=== PATIENT | female | born 1990 | race Caucasian/White ===

== ENCOUNTER 2020-07-30 10:56 | Outpatient (CLI) | payer OTHER ==
[2020-07-30 13:21] VITALS: BP 131/77; PULSE 90; RESP 16
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
== END 2020-07-30 13:10 | disposition home or self-care (01) ==
LOC: FBPOP 10:56
PROVIDERS: ATTEND Obstetrics & Gynecology
DX: O26.893 Other specified pregnancy related conditions, third trimester (principal); Z3A.29 29 weeks gestation of pregnancy
CPT/HCPCS: 59025; 99213

== ENCOUNTER 2020-09-17 15:29 | Outpatient (CLI) | payer BC ==
[2020-09-17 16:43] VITALS: BP 137/82; PULSE 101; RESP 18; TEMP 97.5
--- NOTE | 2020-10-01 13:07 | P.MSEPDOC ---
Presenting Problems - Arrival Data Date of Arrival on Unit: 09/17/20 Time of Arrival on Unit: 15:29 Mode of Transport: Ambulatory - Complaint OB-Reason for Admission/Chief Complaint: Possible Onset of Labor Medical History - Information : 1 Para: 0 Term: 0 : 0 Abortions: Spontaneous or Elective: 0 Number of Living Children: 0 - Gestational Age Gestational Age by CARMELO (wks/days): 36 Weeks and 6 Days Review of Systems - Review of Systems Constitutional: No problems Breast: No problems ENT: No problems Cardiovascular: No problems Respiratory: No problems Gastrointestinal: No problems Genitourinary: No problems Musculoskeletal: No problems Neurological: No problems Skin: No problems Vital Signs - Temperature Temperature: 97.5 F Temperature Source: Temporal Artery Scan - Pulse Right Brachial Pulse Rate: 101 Pulse Assessment Method: Automatic Cuff - Respirations Respiratory Rate: 18 Oxygen Delivery Method: Room Air - Blood Pressure Right Arm Blood Pressure: 137/82 Blood Pressure Mean: 100 Blood Pressure Source: Automatic Cuff Medical Screen Scoring (Pre) - Cervical Exam Dilation: 1-3 cm = 1 Effacement: More than 50% = 2 Membranes: Intact - Uterine Contractions Frequency: > 5 minutes apart = 1 Duration: N/A Intensity: N/A - Maternal Vital Signs Maternal Temperature: N/A Maternal Blood Pressure: N/A Signs of Preeclampsia: N/A Maternal Respirations: N/A - Maternal Trauma Maternal Trauma: N/A - Assessment - Baby A Baseline FHR: 130 Heart Rate - NICHD Category: Category I (Normal) = 0 NST: Reactive Position: N/A Station: N/A - Total Score - Baby A Total Score - Baby A: 4 - Total Score - Baby B Total Score - Baby B: 4 - Total Score - Baby C Total Score - Baby C: 4 - Level of Risk - Baby A Level of Risk - Baby A: Low (0-5) - Level of Risk - Baby B Level of Risk - Baby B: Low (0-5) - Level of Risk - Baby C Level of Risk - Baby C: Low (0-5) Physician Notification (Pre) - Physician Notified Physician Notified Date: 09/17/20 Physician Notified Time: 16:18 New Order Received: Yes - Notification Comment Comment: nst reactive, irregular contractions, cervical exam, 1.5/60,orders to discharge home, follow up at scheduled appt on sunday with Dr. León Disposition - Disposition OB Disposition: Triage, Discharge to home, Written follow up instructions reviewed Discharge Date: 09/17/20 Discharge Time: 16:25 I agree with the RN Medical Screening Exam: Yes Physician's MSE Comment: I have neither seen nor examined the patient. Case reviewed; plan agreed upon as documented in EMR&OBIX.: Yes Diagnosis: RELATED CONDITIONS, UNSPECIFIED, THIRD TRIMESTER
== END 2020-09-17 16:25 | disposition home or self-care (01) ==
LOC: FBPOP 15:29
PROVIDERS: ATTEND Obstetrics & Gynecology
DX: O26.893 Other specified pregnancy related conditions, third trimester (principal); Z3A.36 36 weeks gestation of pregnancy
CPT/HCPCS: 59025; 99213

== ENCOUNTER 2020-10-04 09:58 | Inpatient (IN) | payer BC ==
[2020-10-04] MEDS ORDERED: CITRIC ACID-SODIUM CITRATE 15 ML CUP PO ONE (10:11)
[2020-10-04 10:59] LABS: Basophils % (A) 0 %; Eosinophils # (A) 0.1 k/uL (0-0.7); Eosinophils % (A) 1 %; HCT 35.3 % (34.0-46.0); HGB 12.4 gm/dL (11.4-16.0); Lymphocytes # (A) 2.1 k/uL (1.0-4.8); Lymphocytes % (A) 16 %; MCH 30.4 pg (25.0-35.0); MCV 86.9 fL (80.0-100.0); Mean Platelet Volume 7.8; Monocytes # (A) 0.6 k/uL (0-1.0); Monocytes % (A) 5 %; Neutrophils # (A) 9.7 k/uL (1.3-7.7); Neutrophils % (A) 76 %; Platelet Count 217 k/uL (150-450); RBC 4.06 m/uL (3.80-5.40); RDW 14.2 % (11.5-15.5); WBC 12.7 k/uL (3.8-10.6)
[2020-10-04] MEDS ORDERED: LACTATED RINGERS 1,000 ML IV ONE (11:15)
[2020-10-04] MEDS ORDERED: OXYTOCIN 10 UNIT/ML 1 ML VIAL ONE (11:58)
[2020-10-04] MEDS ORDERED: METHYLERGONOVINE 0.2 MG/ML 1 ML AMP ONE (11:58)
[2020-10-04] MEDS ORDERED: MORPHINE SULFATE (PF) 0.3 MG/0.3 ML SYR ONE (11:58)
[2020-10-04] MEDS ORDERED: ONDANSETRON 4 MG/2 ML VIAL ONE (11:58)
[2020-10-04] MEDS ORDERED: NALBUPHINE 10 MG/ML (1 ML AMP) ONE (11:58)
[2020-10-04] MEDS ORDERED: KETOROLAC 15 MG/ML 1 ML VIAL ONE (11:58)
--- NOTE | 2020-10-04 11:58 | P.HPOB ---
History of Present Illness H&P Date: 10/04/20 Chief Complaint: Here for section for breech presentation This is a 30-year-old white female 1 para 0 EDC 10/11/2020 at 39 weeks gestation. Patient has a known breech presentation and presents today for section. She denies vaginal bleeding or fluid leakage. Fetus is been active throughout the . Past medical history is essentially negative. Past surgical history wisdom teeth extracted in the past. Current medications vitamins daily. ALLERGIES none known. Family history significant for breast cancer and brain cancer. Social history patient has never been a smoker, she denies alcohol or drug use. 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 Obstetric history is significant for blood type A+, rubella status nonimmune. Urine culture, hepatitis B surface antigen, HIV testing, gonorrhea and chlamydia cultures all negative. One-hour Glucola 175, three-hour GTT within normal limi ts. Sonogram at the bedside confirmed breech presentation. Patient has had mild PIH throughout the third trimester of . Impression: 39 week intrauterine , mild PIH, persistent breech presentation declining option for . Here for primary low transverse section. Plan: Antibiotic prophylaxis per hospital protocol. For primary low transverse section at this time. Review of Systems Constitutional: Reports as per HPI Past Medical History Past Medical History: No Reported History History of Any Multi-Drug Resistant Organisms: None Reported Additional Past Surgical History / Comment(s): wisdom teeth Past Anesthesia/Blood Transfusion Reactions: No Reported Reaction Past Psychological History: Anxiety Smoking Status: Never smoker Past Alcohol Use History: None Reported Past Drug Use History: None Reported - Past Family History Mother Family Medical History: Hypertension Father Family Medical History: Hypertension Medications and Allergies Home Medications Medication Instructions Recorded Confirmed Type Aspirin [Adult Low Dose Aspirin EC] 81 mg PO DAILY 07/30/20 10/04/20 History Pnv No.95/Ferrous Fum/Folic AC 1 tab PO DAILY 07/30/20 10/04/20 History [ Multivitamin Tablet] L.acidoph,Paracasei, B.lactis 1 each PO DAILY 09/30/20 10/04/20 History [Probiotic] Allergies Allergy/AdvReac Type Severity Reaction Status Date / Time No Known Allergies Allergy Verified 10/04/20 10:09 Exam Vital Signs Temp Pulse Resp BP Pulse Ox 10/04/20 10:48 98.2 F 97 18 149/87 99 Intake and Output 10/03/20 10/04/20 10/04/20 22:59 06:59 14:59 Other: Weight 84.822 kg See dictation under HPI please Results Result Diagrams: 10/04/20 10:30 Abnormal Lab Results - Last 24 Hours (Table) 10/04/20 Range/Units 10:30 WBC 12.7 H (3.8-10.6) k/uL Neutrophils # 9.7 H (1.3-7.7) k/uL Assessment and Plan Assessment: 39 week intrauterine , breech presentation, here for primary low tr ansverse section, declining option for . Mild PIH noted. Plan: Primary low transverse section. All questions answered, consents reviewed signed witnessed and dated. Prophylactic antibiotics given. Time with Patient: Less than 30
[2020-10-04] MEDS ORDERED: ONDANSETRON 4 MG/2 ML VIAL IVP PRN (12:49)
[2020-10-04] MEDS ORDERED: diphenhydrAMINE 50 MG CAP PO PRN (12:49)
[2020-10-04] MEDS ORDERED: diphenhydrAMINE 25 MG CAP PO PRN (12:49)
[2020-10-04] MEDS ORDERED: ZOLPIDEM 5 MG TAB PO PRN (12:49)
[2020-10-04] MEDS ORDERED: diphenhydrAMINE 50 MG/ML 1 ML VIAL IVP PRN ×2 (12:49)
[2020-10-04] MEDS ORDERED: METOCLOPRAMIDE 5 MG/ML 2 ML VIAL IVP PRN (12:49)
[2020-10-04] MEDS ORDERED: NALOXONE 0.4 MG/ML 1 ML VIAL IV PRN (12:49)
--- NOTE | 2020-10-04 12:49 | P.OP ---
Date of Procedure: 10/04/20 Preoperative Diagnosis: 39 week intrauterine , breech presentation Postoperative Diagnosis: Same, liveborn female infant. Normal-appearing uterus, tubes and ovaries. Procedure(s) Performed: Primary low transverse section Anesthesia: spinal Surgeon: Carmen León Labor Commissioner #1: Mirian Devine Estimated Blood Loss (ml): 500 IV fluids (ml): 700 Urine output (ml): 200 Pathology: none sent Condition: stable Disposition: PACU Indications for Procedure: Declining option for Description of Procedure: Patient is brought to bring suite where a spinal with Duramorph is given for analgesic purposes. She's placed in the dorsal supine position with left lateral uterine displacement. Bazan catheter placed to direct drainage. Antibiotics given. The appropriate timeout was performed to assure proper patient and procedural identification. Analgesia is checked and noted to be adequate. A low transverse skin incision is made in this is carried down through the subcutaneous tissue which is approximately 3 cm deep. Fascia is isolated, scored, extended bilaterally with curved Marcelo scissors. Peritoneum is next identified and incised, there is no bowel or bladder involvement. Bladder is low on the uterine anterior surface and therefore a separate bladder flap was not created. A low transverse uterine incision is made carried down through the myometrium and into the endometrial cavity. Artificial amniorrhexis reveals clear fluid. The uterine incision is extended transversely manually. The infant's breech is delivered in the caden breech position. Sacrum anterior. The legs are delivered with a Pinard maneuver. A sterile blue towel is used around the trunk and the Pinard maneuver is used to deliver the upper extremities. The head is delivered in a flexed position. Patient is officially delivered of a liveborn female at 1213 hours. Umbilical cord is doubly clamped and ligated, she is handed to waiting nurses for evaluation where scores of 9 and 9 at one and 5 minutes respectively are given. Placentas delivered manually, it is inspected and noted to be intact with trivascular cord at 1214 hours. Uterus is externalized and massaged. It is swept clean with a sterile sponge to avoid any retained products of conception. Uterus closed in a two-step fashion, first layer running locking with 0 Vicryl, second layer imbricated with 0 Vicryl. The incision is clean and dry. The uterus is gently placed back into the abdominal cavity. Bilateral gutters are inspected and cleaned. Peritoneum is allowed to close by secondary intention. Fascia is closed in a running stitch of 0 Vicryl with over ligation in the midline. Subcutaneous tissue is irrigated, noted to be clean and dry. It is reapproximated with 3-0 Vicryl in a running stitch, 4-0 undyed Monocryl for final subcuticular closure. Steri-Strips and Mastisol are applied to the wound. Uterus is massaged. It is slightly boggy and a single ampule of Methergine was given IM with good results. Total estimated blood loss 500 mL's. Total fluid replacement 700 mL crystalloid. Urine output 200 mL, clear and yellow. Patient is brought back to recovery room in very good condition with stable vital signs including blood pressure 114/66, pulse 88, respirations 16, 98% O2 saturation.
[2020-10-04] MEDS ORDERED: HYDROmorphone 0.5 MG/0.5 ML SYRINGE IVP PRN (16:37)
[2020-10-04] MEDS: ACETAMINOPHEN TAB 500 MG TAB PO SCH ×2 (16:45→22:37)
[2020-10-04] MEDS: LACTATED RINGERS 1,000 ML IV SCH (17:00)
[2020-10-04] MEDS: HYDROcodone/APAP 5-325MG 1 EACH TAB PO PRN ×2 (17:02→22:36)
[2020-10-04] MEDS: KETOROLAC 15 MG/ML 1 ML VIAL IVP SCH (18:10)
[2020-10-04] MEDS: SENNOSIDES-DOCUSATE SODIUM 1 EACH TAB PO SCH (22:36)
[2020-10-05] MEDS: LACTATED RINGERS 1,000 ML IV SCH ×3 (00:48→23:04)
[2020-10-05] MEDS: KETOROLAC 15 MG/ML 1 ML VIAL IVP SCH ×3 (02:15→23:04)
[2020-10-05] MEDS: HYDROcodone/APAP 5-325MG 1 EACH TAB PO PRN ×3 (04:53→20:41)
[2020-10-05] MEDS: ACETAMINOPHEN TAB 500 MG TAB PO SCH ×2 (05:18→23:04)
--- NOTE | 2020-10-05 07:18 | P.PN ---
Progress Note - Text Progress Note Date: 10/05/20 Patient doing well. Ambulating without paresthesia or weakness. Pain controlled. Denies headache. Pruritis treated. A/P POD#1 s/p with duramorph - continue multimodal pain treatment
[2020-10-05] MEDS ORDERED: MEASLES-MUMPS-RUBELLA VACC/PF 12,500 UNIT/0.5 ML VIAL SQ ONE (08:00)
[2020-10-05 08:27] LABS: Basophils % (A) 0 %; Eosinophils # (A) 0.1 k/uL (0-0.7); Eosinophils % (A) 1 %; HCT 29.2 % (34.0-46.0); HGB 10.3 gm/dL (11.4-16.0); Lymphocytes # (A) 1.7 k/uL (1.0-4.8); Lymphocytes % (A) 14 %; MCH 31.2 pg (25.0-35.0); MCHC 35.3 g/dL (31.0-37.0); MCV 88.4 fL (80.0-100.0); Mean Platelet Volume 7.8; Monocytes # (A) 0.7 k/uL (0-1.0); Monocytes % (A) 5 %; Neutrophils # (A) 9.5 k/uL (1.3-7.7); Neutrophils % (A) 78 %; Platelet Count 190 k/uL (150-450); RDW 14.1 % (11.5-15.5); WBC 12.3 k/uL (3.8-10.6)
[2020-10-05] MEDS: SENNOSIDES-DOCUSATE SODIUM 1 EACH TAB PO SCH ×2 (09:00→20:41)
--- NOTE | 2020-10-05 09:01 | P.PN ---
Subjective Progress Note Date: 10/05/20 Principal diagnosis: Doing well postoperative day #1 Positive flatus. Minimal pain. Minimal to moderate lochia rubra. No complaints. Objective - Vital Signs Vital signs: Vital Signs Temp 98.2 F 10/05/20 07:12 Pulse 83 10/05/20 07:12 Resp 14 10/05/20 07:12 BP 107/66 10/05/20 07:12 Pulse Ox 99 10/05/20 07:12 Intake & Output 10/04/20 10/05/20 10/05/20 18:59 06:59 18:59 Intake Total 1000 Output Total 800 Balance 1000 -800 Weight 84.822 kg Intake: IV 1000 Output: Urine 800 Uretheral (Bazan) 600 Other: Voiding Method Indwelling Catheter # Voids 200 1 1 - Constitutional General appearance: Present: average body habitus, cooperative - EENT Eyes: Present: PERRLA ENT: Present: hearing grossly normal - Respiratory Respiratory: bilateral: CTA - Cardiovascular Rhythm: regular - Gastrointestinal Gastrointestinal Comment(s): Incision clean and dry, intact, Steri-Strips applied. Fundus firm, midline, symmetric, 18 week size. - Integumentary Integumentary: Present: normal - Neurologic Neurologic: Present: CNII-XII intact - Musculoskeletal Musculoskeletal: Present: gait normal, strength equal bilaterally - Psychiatric Psychiatric: Present: A&O x's 3, appropriate affect, intact judgment & insight - Labs CBC & Chem 7: 10/05/20 07:48 Labs: Abnormal Lab Results - Last 24 Hours (Table) 10/04/20 10/05/20 Range/Units 10:30 07:48 WBC 12.7 H 12.3 H (3.8-10.6) k/uL RBC 3.30 L (3.80-5.40) m/uL Hgb 10.3 L (11.4-16.0) gm/dL Hct 29.2 L (34.0-46.0) % Neutrophils # 9.7 H 9.5 H (1.3-7.7) k/uL Assessment and Plan Assessment: Doing well postoperative day #1 Plan: Continue postoperative care. Likely discharge home tomorrow. Time with Patient: Less than 30
[2020-10-05] MEDS: IBUPROFEN 600 MG TAB PO PRN (16:35)
[2020-10-05] MEDS ORDERED: ACETAMINOPHEN TAB 500 MG TAB PO PRN (19:37)
[2020-10-05] MEDS ORDERED: diphenhydrAMINE 25 MG CAP PO PRN (19:37)
[2020-10-05] MEDS ORDERED: diphenhydrAMINE 50 MG CAP PO PRN (19:37)
[2020-10-05] MEDS ORDERED: ONDANSETRON 4 MG/2 ML VIAL IVP PRN (19:37)
[2020-10-05 23:08] VITALS: RESP 18
[2020-10-06] MEDS: IBUPROFEN 600 MG TAB PO PRN ×2 (02:53→07:47)
[2020-10-06 07:42] VITALS: BP 119/84; PULSE 91; TEMP 98.6
--- NOTE | 2020-10-06 08:00 | P.DS ---
Providers Date of admission: 10/04/20 09:58 Expected date of discharge: 10/06/20 Attending physician: Carmen León Primary care physician: Stated None Hospital Course: This is a 30-year-old white female 1 para 0 EDC 10/11/2020 at 39 weeks gestation. Patient presented for section for breech presentation, declining option for . remarkable for negative group B strep cultures, blood type A positive, rubella status nonimmune. Please see dictated history and physical for details. Patient underwent a primary low transverse section and gave to a breech female infant with scores of 9 and 9 at one and 5 minutes respectively. Infant weight 3280 g or 7 lbs. 4 oz. Estimated blood loss 500 mL's. Please see my dictated operative note for details. Postoperatively the patient is doing well. She is voiding, ambulating, passing flatus without difficulty. Vital signs are stable and she is afebrile. Incision is clean and dry, intact with Steri-Strips applied. Extremities are negative for edema. Breasts are not engorged. is doing well. Patient is judged to be in very good condition for discharge home. She will follow-up with me in the office in 2 weeks. I have reminded her no intercourse, tampons or douching. She will use [id number] Advil or Aleve, or Motrin as needed for pain. She will call with any fevers shakes or chills, foul smelling or copious lochia, with the passage of large blood clots, with any pain not alleviated by [id number] products, or indeed with any concerns. Continue vitamin daily. Assessment: Doing well second postoperative day Patient Condition at Discharge: Good Plan - Discharge Summary Discharge Rx Participant: No New Discharge Prescriptions: No Action Pnv No.95/Ferrous Fum/Folic AC [ Multivitamin Tablet] 1 tab PO DAILY Aspirin [Adult Low Dose Aspirin EC] 81 mg PO DAILY L.acidoph,Paracasei, B.lactis [Probiotic] 1 each PO DAILY Discharge Medication List Aspirin [Adult Low Dose Aspirin EC] 81 mg PO DAILY 07/30/20 [History] Pnv No.95/Ferrous Fum/Folic AC [ Multivitamin Tablet] 1 tab PO DAILY 07/30/20 [History] L.acidoph,Paracasei, B.lactis [Probiotic] 1 each PO DAILY 09/30/20 [History] Follow up Appointment(s)/Referral(s): Carmen León MD [STAFF PHYSICIAN] - 2 Weeks Discharge Disposition: HOME SELF-CARE
[2020-10-06] MEDS: SENNOSIDES-DOCUSATE SODIUM 1 EACH TAB PO SCH (10:41)
[2020-10-07] MEDS ORDERED: IBUPROFEN 600 MG TAB PO SCH (19:00)
== END 2020-10-06 10:16 | disposition home or self-care (01) | DRG 788 ==
LOC: 4FBP 09:58
PROVIDERS: ADMIT Obstetrics & Gynecology; ATTEND Obstetrics & Gynecology
PROC: 10D00Z1 Extraction of Products of Conception, Low, Open Approach (ICD-10-PCS; principal; 2020-10-04 12:00)
DX: O64.1XX0 Obstructed labor due to breech presentation, not applicable or unspecified (principal); O13.4 Gestational [pregnancy-induced] hypertension without significant proteinuria, complicating childbirth; O34.211 Maternal care for low transverse scar from previous cesarean delivery; L29.9 Pruritus, unspecified; Z37.0 Single live birth; Z3A.39 39 weeks gestation of pregnancy; Z79.82 Long term (current) use of aspirin
CPT/HCPCS: 85025; 86850; 86900; 86901; 90707

== ENCOUNTER 2024-03-17 13:15 | Observation (INO) | payer BC ==
[2024-03-17 14:14] LABS: Basophils # (A) 0.1 k/uL (0-0.2); Basophils % (A) 1 %; Eosinophils # (A) 0.2 k/uL (0-0.7); Eosinophils % (A) 2 %; HCT 40.1 % (34.0-46.0); HGB 13.6 gm/dL (11.4-16.0); Lymphocytes # (A) 2.3 k/uL (1.0-4.8); Lymphocytes % (A) 23 %; MCH 30.3 pg (25.0-35.0); MCHC 33.9 g/dL (31.0-37.0); MCV 89.5 fL (80.0-100.0); Mean Platelet Volume 7.7; Monocytes # (A) 0.4 k/uL (0-1.0); Monocytes % (A) 4 %; Neutrophils % (A) 69 %; Platelet Count 284 k/uL (150-450); RBC 4.48 m/uL (3.80-5.40); RDW 13.1 % (11.5-15.5); WBC 10.1 k/uL (3.8-10.6)
--- NOTE | 2024-03-17 14:23 | ED ---
Chest Pain HPI - General Chief Complaint: Chest Pain Stated Complaint: Chest Pain Time Seen by Provider: 03/17/24 14:20 Source: patient, RN notes reviewed Mode of arrival: ambulatory Limitations: no limitations - History of Present Illness Initial Comments: 33-year-old female presented the ER with a chief complaint of chest discomfort. Patient was sent by urgent care for further evaluation. Patient states she was awoken from her sleep at this morning around 4 AM to a squeezing pressure centralized chest pain. She states the pain has been intermittent since. She reports associated shortness of breath, dizziness and lightheadedness during these episodes. She does report mild numbness/tingling to her left upper extremity. Pain is not reproducible. No known cardiac history. No history of DVTs or PEs. Patient did take aspirin prior to arrival. No other complaints. - Related Data Home Medications Medication Instructions Recorded Confirmed Apri 1 tab PO HS 03/17/24 03/17/24 fluvoxaMINE [Luvox] 50 mg PO HS 03/17/24 03/17/24 Allergies Allergy/AdvReac Type Severity Reaction Status Date / Time No Known Allergies Allergy Verified 03/17/24 16:25 Review of Systems ROS Statement: Those systems with pertinent positive or pertinent negative responses have been documented in the HPI. ROS Other: All systems not noted in ROS Statement are negative. EKG Findings - EKG Comments: EKG Findings:: EKG taken at 13: 37 showing a sinus rhythm no acute ST segment depressions or elevations. No T wave abnormalities. Normal axis. Ventricular rate 67,W[place] interval 142, QRS duration 81, QT/QTc 399/414. Past Medical History Past Medical History: No Reported History History of Any Multi-Drug Resistant Organisms: None Reported Past Surgical History: Section Additional Past Surgical History / Comment(s): wisdom teeth Past Anesthesia/Blood Transfusion Reactions: No Reported Reaction Past Psychological History: Anxiety Smoking Status: Never smoker Past Alcohol Use History: None Reported Past Drug Use History: None Reported - Past Family History Mother Family Medical History: Hypertension Father Family Medical History: Hypertension General Exam Limitations: no limitations General appearance: alert, in no apparent distress Respiratory exam: Present: normal lung sounds bilaterally. Absent: respiratory distress, wheezes, rales, rhonchi, stridor Cardiovascular Exam: Present: regular rate, normal rhythm, normal heart sounds. Absent: systolic murmur, diastolic murmur, rubs, gallop, clicks Extremities exam: Present: normal inspection, full ROM, normal capillary refill. Absent: tenderness, pedal edema, joint swelling, calf tenderness Neurological exam: Present: alert, oriented X3, CN II-XII intact Skin exam: Present: warm, dry, intact, normal color. Absent: rash Course Vital Signs 03/17/24 03/17/24 03/17/24 13:28 13:40 13:48 Temperature 98.8 F Pulse Rate 67 72 Pulse Rate [ 71 Staker Surveying ] Respiratory 16 17 Rate Blood Pressure 118/86 131/86 O2 Sat by Pulse 99 99 Oximetry 03/17/24 03/17/24 15:15 16:37 Temperature 98.7 F Pulse Rate 72 94 Pulse Rate [ Staker Surveying ] Respiratory 18 15 Rate Blood Pressure 125/77 118/86 O2 Sat by Pulse 100 98 Oximetry - Reevaluation(s) Reevaluation #1: 03/17/24 16:[address] Bales for admission. 03/17/24 16:55 HEART score 1 Chest Pain MDM - MDM Was pt. sent in by a medical professional or institution (, PA, BUILDING ARCHITECTURAL DESIGNER, urgent c are, hospital, or alf...) When possible be specific @ -Urgent care sent for further evaluation of chest pain. Did you speak to anyone other than the patient for history (EMS, parent, family, police, friend...)? What history was obtained from this source @ -No Did you review nursing and triage notes (agree or disagree)? Why? @ -I reviewed and agree with nursing and triage notes Were old charts reviewed (outside hosp., previous admission, EMS record, old EKG, old radiological studies, urgent care reports/EKG's, alf records)? Report findings @ -No old charts were reviewed Differential Diagnosis (chest pain, altered mental status, abdominal pain women, abdominal pain men, vaginal bleeding, weakness, fever, dyspnea, syncope, headache, dizziness, GI bleed, back pain, seizure, CVA, palpatations, mental health, musculoskeletal)? @ -Differential Chest Pain: Stable Angina, Unstable Angina, STEMI, NSTEMI Aortic Dissection, Pneumothorax, Musculoskeletal, Esophageal Spasm GERD, Cholecystitis, Pancreatitis, Zoster, this is not meant to be an all-inclusive list. EKG interpreted by me (3pts min.). @ -As above X-rays interpreted by me (1pt min.). @ -Chest x-ray interpreted by me negative for acute cardiopulmonary process. CT interpreted by me (1pt min.). @ -None done U/S interpreted by me (1pt. min.). @ -None done What testing was considered but not performed or refused? (CT, X-rays, U/S, labs)? Why? @ -None What meds were considered but not given or refused? Why? @ -None Did you discuss the management of the patient with other professionals (professionals i.e. DrMadonna, PA, BUILDING ARCHITECTURAL DESIGNER, lab, RT, psych nurse, medical social consultant, physician specialist, teacher, aoc plans intelligence officer, watch caser)? Give summary @ -Yes, case discussed with Dr. Bales for admission. Was smoking cessation discussed for >3mins.? @ -No Was critical care preformed (if so, how long)? @ -No Were there social determinants of health that impacted care today? How? (Homelessness, low income, unemployed, alcoholism, drug addiction, transportation, low edu. Level, literacy, decrease access to med. care, [facility], rehab)? @ -No Was there de-escalation of care discussed even if they declined (Discuss DNR or withdrawal of care, Hospice)? DNR status @ -No What co-morbidities impacted this encounter? (DM, HTN, Smoking, COPD, CAD, Cancer, CVA, ARF, Chemo, Hep., AIDS, mental health diagnosis, sleep apnea, morbid obesity)? @ -None Was patient admitted / discharged? Hospital course, mention meds given and route, prescriptions, significant lab abnormalities, going to OR and other pertinent info. @ -Admitted. 33-year-old female presented to the ER with a chief complaint of a squeezing chest discomfort. History and physical exam completed.Vitals upon my examination within normal limits. Patient in no signs of acute distress and nontoxic-appearing. Exam unremarkable. Laboratory studies obtained unremarkable. D-dimer 0.56, troponin undetectable. EKG showing no acute evidence of infarct or ischemia. Upon reevaluation, patient resting comfortably in exam room patient is reporting recurrent bouts of chest discomfort throughout ER stay. Admission was considered at that time for observation and chest pain rule out. This was discussed with Dr. Bales who accepts admission. Patient is agreeable for admission. Patient in stable condition for further evaluation and treatment. Case discussed with ED attending, Dr. Ross. Undiagnosed new problem with uncertain prognosis? @ -No Drug Therapy requiring intensive monitoring for toxicity (Heparin, Nitro, Insulin, Cardizem)? @ -No Were any procedures done? @ -No Diagnosis/symptom? @ -Chest discomfort Acute, or Chronic, or Acute on Chronic? @ -Acute Uncomplicated (without systemic symptoms) or Complicated (systemic symptoms)? @ -Uncomplicated Side effects of treatment? @ -No Exacerbation, Progression, or Severe Exacerbation? @ -No Poses a threat to life or bodily function? How? (Chest pain, USA, PA, pneumonia, PE, COPD, DKA, ARF, appy, cholecystitis, CVA, Diverticulitis, Homicidal, Suicidal, threat to staff... and all critical care pts) @ -Possibly, chest discomfort may be ACS which can lead to lethal cardiac arrhythmias. Disposition Clinical Impression: Chest pain Disposition: ADMITTED IP TO THIS HOSP Condition: Stable Referrals: Reece Bales MD [Primary Care Provider] - 1-2 days Time of Disposition: 16:21
[2024-03-17 14:37] LABS: ALT 11 U/L (4-34); AST 23 U/L (14-36); African American GFR (CKD) >90 (>60 ml/min/1.73 sqM); Albumin 4.4 g/dL (3.5-5.0); Alkaline Phosphatase 55 U/L (38-126); Anion Gap 4 mmol/L; Blood Urea Nitrogen 16 mg/dL (7-17); Calcium 9.8 mg/dL (8.4-10.2); Carbon Dioxide 24 mmol/L (22-30); Chloride 108 mmol/L (98-107); Glucose 79 mg/dL (74-99); Magnesium 2.1 mg/dL (1.6-2.3); Non-African American GFR(CKD) 89 (>60 ml/min/1.73 sqM); Potassium 4.2 mmol/L (3.5-5.1); Sodium 136 mmol/L (137-145); Total Bilirubin 0.6 mg/dL (0.2-1.3)
[2024-03-17 14:38] LABS: INR 0.9 (<1.2); Prothrombin Time 9.8 sec (10.0-12.5)
[2024-03-17] MEDS: SODIUM CHLORIDE 0.9% 1,000 ML IV STA (14:40)
--- NOTE | 2024-03-17 15:01 | XR ---
EXAMINATION TYPE: XR chest 2V DATE OF EXAM: 03/17/2024 COMPARISON: NONE HISTORY: Chest pain TECHNIQUE: Frontal and lateral views of the chest are obtained. FINDINGS: There is no focal air space opacity. No evidence for pneumothorax. No pleural effusion. The cardiac silhouette size is within normal limits. The osseous structures are grossly intact. IMPRESSION: 1. No acute cardiopulmonary process. [facility], , 03/17/2024 2:59 PM
[2024-03-17] MEDS: ACETAMINOPHEN TAB 325 MG TAB PO STA (16:02)
[2024-03-17] MEDS ORDERED: ACETAMINOPHEN TAB 325 MG TAB PO PRN (16:20)
[2024-03-17] MEDS ORDERED: IBUPROFEN 400 MG TAB PO PRN (16:20)
[2024-03-17] MEDS ORDERED: NALOXONE 0.4 MG/ML 1 ML VIAL IV PRN (16:20)
[2024-03-17] MEDS ORDERED: ONDANSETRON 4 MG/2 ML VIAL IVP PRN (16:20)
[2024-03-17] MEDS: SODIUM CHLORIDE 0.9% 1,000 ML IV SCH (16:42)
[2024-03-17] MEDS ORDERED: HYDROcodone/APAP 5-325MG 1 EACH TAB PO PRN (19:26)
[2024-03-18 08:00] VITALS: RESP 16
--- NOTE | 2024-03-18 09:56 | P.CRDCN ---
History of Present Illness Consult date: 03/18/24 Consult reason: chest pain History of present illness: This is a 33-year-old female patient with no significant past medical history. No cardiac history and does not follow with a orthodontic treatment coordinator. We have been asked to evaluate for chest pain. Patient developed sharp that awoke her from a sleep and she initially went to the urgent care center and was sent into the hospital. Reviewed results of the EKG and lab work with the patient. Blood pressure 116/75, heart rate in the 70s to 90s, orthostatic vital signs negative. Pulse ox 99% on room air. Patient is status post 1 L of IV fluid. EKG: Sinus rhythm with no acute ST-T wave changes Chest x-ray: No acute process Laboratory studies: CBC, D-dimer within normal limits. Potassium 4.2, creatinine 0.87. Troponin negative x 3. Home cardiac medications: None Review Of Systems: At the time of my exam: CONSTITUTIONAL: Denies fever or chills. HEENT: Denies blurred vision, vision changes, or eye pain. Denies hemoptysis CARDIOVASCULAR: Denies chest pain. Denies orthopnea. Denies PND. Denies palpitations RESPIRATORY: Denies shortness of breath. GASTROINTESTINAL: Denies abdominal pain. Denies nausea or vomiting. HEMATOLOGIC: Denies bleeding disorders. GENITOURINARY: Denies any blood in urine. SKIN: Denies puritis. Denies rash. Physical examination: Gen: This is a 33-year-old female in no acute distress VS: reviewed HEENT: Head is atraumatic, normocephalic. Pupils equal, round. Sclerae is anicteric. NECK: Supple. No JVD. LUNGS: Clear to auscultation. No wheezes or rhonchi. No intercostal retractions. HEART: Regular rate and rhythm. 3/6 systolic murmur. ABDOMEN: Soft No tenderness. EXTREMITIES: No pedal edema. No calf tenderness. NEUROLOGICAL: Patient is awake, alert and oriented x3. Assessment: Atypical chest pain, acute coronary syndrome ruled out Plan: Obtain stress echocardiogram today Obtain 2-D echocardiogram and Doppler study to assess cardiac structure and function If testing is unremarkable, patient is cleared for discharge. Thank you kindly for this consultation. Nurse practitioner note has been reviewed, I agree with documented findings and plan of care. Patient was seen and examined. Past Medical History Past Medical History: No Reported History History of Any Multi-Drug Resistant Organisms: None Reported Past Surgical History: Section Additional Past Surgical History / Comment(s): wisdom teeth Past Anesthesia/Blood Transfusion Reactions: No Reported Reaction Past Psychological History: Anxiety Smoking Status: Never smoker Past Alcohol Use History: None Reported Past Drug Use History: None Reported - Past Family History Mother Family Medical History: Hypertension Father Family Medical History: Hypertension Medications and Allergies Home Medications Medication Instructions Recorded Confirmed Type Apri 1 tab PO HS 03/17/24 03/17/24 History fluvoxaMINE [Luvox] 50 mg PO HS 03/17/24 03/17/24 History Allergies Allergy/AdvReac Type Severity Reaction Status Date / Time No Known Allergies Allergy Verified 03/17/24 16:25 Physical Exam Vitals: Vital Signs Temp Pulse Pulse Resp BP BP Pulse Ox 03/18/24 02:00 98.2 F 94 18 126/82 97 03/18/24 01:38 98.5 F 81 18 119/81 97 03/18/24 00:44 66 18 117/71 97 03/17/24 22:18 82 18 105/70 97 03/17/24 19:35 70 19 114/72 98 03/17/24 18:20 84 16 115/77 98 03/17/24 16:37 98.7 F 94 15 118/86 98 03/17/24 15:15 72 18 125/77 100 03/17/24 13:48 72 17 131/86 99 03/17/24 13:40 71 03/17/24 13:28 98.8 F 67 16 118/86 99 Intake and Output 03/17/24 03/18/24 03/18/24 22:59 06:59 14:59 Intake Total 0 Balance 0 Intake: Oral 0 Other: Voiding Method Toilet # Voids 1 Weight 66.224 kg Results 03/17/24 14:02 03/17/24 14:02 Cardiac Enzymes 03/17/24 03/17/24 03/17/24 Range/Units 14:02 14:02 19:32 AST 23 (14-36) U/L Troponin I <0.012 <0.012 (0.000-0.034) ng/mL 03/17/24 Range/Units 23:25 AST (14-36) U/L Troponin I <0.012 (0.000-0.034) ng/mL Coagulation 03/17/24 Range/Units 14:02 PT 9.8 L (10.0-12.5) sec APTT 23.0 (22.0-30.0) sec CBC 03/17/24 Range/Units 14:02 WBC 10.1 (3.8-10.6) k/uL RBC 4.48 (3.80-5.40) m/uL Hgb 13.6 (11.4-16.0) gm/dL Hct 40.1 (34.0-46.0) % Plt Count 284 (150-450) k/uL Comprehensive Metabolic Panel 03/17/24 Range/Units 14:02 Sodium 136 L (137-145) mmol/L Potassium 4.2 (3.5-5.1) mmol/L Chloride 108 H (98-107) mmol/L Carbon Dioxide 24 (22-30) mmol/L BUN 16 (7-17) mg/dL Creatinine 0.87 (0.52-1.04) mg/dL Glucose 79 (74-99) mg/dL Calcium 9.8 (8.4-10.2) mg/dL AST 23 (14-36) U/L ALT 11 (4-34) U/L Alkaline Phosphatase 55 (38-126) U/L Total Protein 7.0 (6.3-8.2) g/dL Albumin 4.4 (3.5-5.0) g/dL Current Medications Generic Name Dose Route Start Last Admin Trade Name Freq PRN Reason Stop Dose Admin Acetaminophen 650 mg 03/17/24 16:20 Acetaminophen Tab 325 Mg Tab PO Q6HR PRN Mild Pain or Fever > 100.5 Hydrocodone Bitart/Acetaminophen 1 each 03/17/24 19:26 Hydrocodone/Apap 5-325mg 1 Each Tab PO Q6HR PRN Pain Sodium Chloride 1,000 mls @ 75 mls/hr 03/17/24 16:30 03/18/24 04:48 Saline 0.9% IV Not Given .[id number] HENRY Ibuprofen 400 mg 03/17/24 16:20 Ibuprofen 400 Mg Tab PO Q6HR PRN Mild Pain or Fever > 100.5 Naloxone HCl 0.2 mg 03/17/24 16:20 Naloxone 0.4 Mg/Ml 1 Ml Vial IV Q2M PRN Opioid Reversal Ondansetron HCl 4 mg 03/17/24 16:20 Ondansetron 4 Mg/2 Ml Vial IVP Q8HR PRN Nausea And Vomiting Intake and Output 03/17/24 03/18/24 03/18/24 22:59 06:59 14:59 Intake Total 0 Balance 0 Intake: Oral 0 Other: Voiding Method Toilet # Voids 1 Weight 66.224 kg 03/17/24 14:02 03/17/24 14:02
--- NOTE | 2024-03-18 10:34 | CA ---
Transthoracic Echo Report Name: Breana Benjamin Age: 33 Gender: F : 1990 Exam Date: 03/18/2024 09:59 Exam Location: [facility] Ht (in): 64 Wt (lb): 146 Ordering Physician: Lianet Borjas Attending/Referring Phys: [id number], Suad Powerbuilder Trinidad Casillas RDCS Procedure CPT: Indications: LVF Cardiac Hx: Technical Quality: Good Contrast 1: Total Dose (mL): Contrast 2: Total Dose (mL): MEASUREMENTS (Male / Female) Normal Values 2D ECHO LV Diastolic Diameter PLAX 4.4 cm 4.2 - 5.9 / 3.9 - 5.3 cm LV Systolic Diameter PLAX 2.9 cm IVS Diastolic Thickness 0.8 cm 0.6 - 1.0 / 0.6 - 0.9 cm LVPW Diastolic Thickness 0.8 cm 0.6 - 1.0 / 0.6 - 0.9 cm LV Relative Wall Thickness 0.4 LVOT Diameter 2.0 cm LV Diastolic Volume MOD BP 93.2 cm??? 67 - 155 / 56 - 104 cm??? LV Systolic Volume MOD BP 31.5 cm??? 22 - 58 / 19 - 49 cm??? LV Ejection Fraction MOD BP 66.2 % >= 55 % LV Cardiac Index MOD BP 2373.6 cm???/min???m??? LV Diastolic Volume MOD 4C 96.0 cm??? LV Systolic Volume MOD 4C 33.6 cm??? LV Ejection Fraction MOD 4C 65.0 % LV Cardiac Index MOD 4C 2401.7 cm???/min???m??? LV Diastolic Length 4C 8.8 cm LV Systolic Length 4C 6.7 cm LV Diastolic Volume MOD 2C 90.9 cm??? LV Systolic Volume MOD 2C 29.7 cm??? LV Ejection Fraction MOD 2C 67.3 % LV Cardiac Index MOD 2C 2354.8 cm???/min???m??? LV Diastolic Length 2C 8.8 cm LV Systolic Length 2C 6.6 cm LA Volume 35.0 cm??? 18 - 58 / 22 - 52 cm??? LA Volume Index 20.1 cm???/m??? 16 - 28 cm???/m??? Ascending Aorta Diameter 2.6 cm DOPPLER AV Peak Velocity 143.7 cm/s AV Peak Gradient 8.3 mmHg AV Mean Velocity 91.1 cm/s AV Mean Gradient 3.9 mmHg AV Velocity Time Integral 27.9 cm LVOT Peak Velocity 112.3 cm/s LVOT Peak Gradient 5.0 mmHg LVOT Velocity Time Integral 22.9 cm LVOT Stroke Volume 68.8 cm??? LVOT Stroke Volume Index 40.2 ml/m??? LVOT Cardiac Index 2648.1 cm???/min???m??? AV Area Cont Eq vti 2.5 cm??? AV Area Cont Eq pk 2.3 cm??? MV Area PHT 4.5 cm??? Mitral E Point Velocity 100.7 cm/s Mitral A Point Velocity 42.4 cm/s Mitral E to A Ratio 2.4 MV Deceleration Time 168.2 ms TR Peak Velocity 242.4 cm/s TR Peak Gradient 23.5 mmHg Right Atrial Pressure 5.0 mmHg Pulmonary Artery Systolic Pressu 28.5 mmHg Right Ventricular Systolic Press 28.5 mmHg PV Peak Velocity 89.7 cm/s PV Peak Gradient 3.2 mmHg FINDINGS Left Ventricle Left ventricular ejection fraction is estimated at 60-65 %. Left ventricular cavity size normal. Left ventricular wall thickness normal. No obvious regional wall motion abnormalities. Right Ventricle Normal right ventricular size and function. Right ventricular systolic pressure within normal limits. Right Atrium Normal right atrial size. Left Atrium Normal left atrial size. Mitral Valve Structurally normal mitral valve. No evidence for mitral valve prolapse. No mitral stenosis. Trace mitral regurgitation. Aortic Valve Trileaflet aortic valve. No aortic valve stenosis or regurgitation. Tricuspid Valve Structurally normal tricuspid valve. No tricuspid stenosis. Mild tricuspid regurgitation. Pulmonic Valve Structurally normal pulmonic valve. No pulmonic stenosis. No pulmonic regurgitation. Pericardium No pericardial effusion. Aorta Normal size aortic root and proximal ascending aorta. CONCLUSIONS Normal LV function Previewed by: Dr. Elier Carter MD (Electronically Signed) Final Date: 18 March 2024 10:33
[2024-03-18 16:14] VITALS: BP 112/76; PULSE 85; TEMP 98.4
--- NOTE | 2024-03-18 17:16 | CA ---
Stress Echo Report Breana Benjamin Age: 33 Gender: F : 1990 Exam Date: 03/18/2024 10:51 Exam Location: [facility] Ht (in): 64 Wt (lb): 146 Ordering Physician: Lianet Borjas Referring Physician: Suad ESPARZA Senior Lead Software Engineer: AMIRA, Technologist Procedure CPT: Indication: Chest Pain ICD-9 Codes: Rhythm: Patient History: Chest pain, short of breath and palpitations Cardiac Medications: Medications in past 24 hours: Contrast: Stress Results Protocol: Richie Total dose(mL): Exercise Duration (min:sec): 10:[address] Depression (mm): Angina Score: Argueta Score: METS: 12.1 Resting HR: 79 Resting BP: 112 / 78 Peak HR: 179 Peak BP: 151 / 75 Max Predicted HR: 189 95 % Max Predicted HR Target HR: 161 Double Product: [id number] Stress Summary: BP Response: Reason for Termination: MAX EXERTION/TARGET HR Cardiac Symptoms: NO SYMPTOMS ECG Analysis Resting ECG: Normal sinus rhythm normal axis normal intervals Stress ECG: Exercised on Richie protocol for 10 and half minutes achieving 85% of predicted maximal heart rate without chest pain or diagnostic ST segment depression Arrhythmia: Echo Analysis Resting Echo: Normal left ventricular size wall motion and systolic function Peak Echo Analysis: Normal hyperdynamic response MEASUREMENTS (Male/Female) Normal Values CONCLUSIONS Good exercise tolerance Negative stress test by EKG criteria Negative stress echo Dr. Elier Carter MD (Electronically Signed) Final Date: 18 March 2024 17:14
--- NOTE | 2024-03-20 20:49 | HP ---
HISTORY AND PHYSICAL CHIEF COMPLAINT: Chest pain. HISTORY OF PRESENT ILLNESS: This is the first known admission for this 33-year-old white female who presented to the emergency room with chest pain, which she describes as being a pressure-like discomfort. All of her studies in the emergency room were negative. She has been in good health otherwise. She does not have hypertension, diabetes, hyperlipidemia, etc. Past medical history, family history, personal and social histories are unremarkable otherwise. She is not allergic to any medication. She takes Buspar, sertraline, and a control. She does not smoke or drink. PHYSICAL EXAMINATION: VITAL SIGNS: Normal. HEAD, EARS, EYES, NOSE, MOUTH AND THROAT: Normal. NECK: Neck veins are not distended. Carotids are normal. CHEST: Clear. CARDIAC: Demonstrated normal sinus rhythm and no murmurs or extra sounds. ABDOMEN: Soft, nontender. EXTREMITIES: Normal. NEUROLOGICAL: She is intact. IMPRESSION: She is admitted to the hospital with diagnosis of chest pain. PLAN: 1. Bedrest. 2. IV fluids. 3. Serial EKGs and enzymes. MMODL / IJN: [id number] /
--- NOTE | 2024-03-20 20:58 | DS ---
DISCHARGE SUMMARY CHIEF COMPLAINT: Chest pain. HISTORY OF PRESENT ILLNESS AND PHYSICAL EXAM: Details of this lady's history and physical can be found in the initial workup. LABORATORY STUDIES: While she was in the hospital, she had laboratory studies, details of which can be found in the laboratory section of her chart. COURSE IN THE HOSPITAL: After admission, she was placed on bedrest, started on intravenous fluids and had serial EKGs and enzymes which were normal. Her pain disappeared. She was doing well, felt that she could be discharged and go home on her usual medications and activity. She will follow up in the office. She will be set up for further cardiac evaluation because there is a family history of coronary artery disease. OPERATIONS: None. CONSULTATION: None. She is improved. MMODL / IJN: [id number] /
--- NOTE | 2024-03-21 09:30 | HP ---
HISTORY AND PHYSICAL CHIEF COMPLAINT: Chest pain. HISTORY OF PRESENT ILLNESS: This is another admission for this 33-year-old white female who has a history of profound hypothyroidism. DICTATION ENDS HERE MMSAMMI / CARLOSN: [id number] /
== END 2024-03-18 17:39 | disposition home or self-care (01) ==
LOC: EC 13:15 → 6NMEDSUR 15:32
PROVIDERS: ADMIT Family Medicine; ATTEND Family Medicine
DX: R07.89 Other chest pain (principal); E03.9 Hypothyroidism, unspecified; R06.02 Shortness of breath; R42 Dizziness and giddiness; R20.0 Anesthesia of skin; R20.2 Paresthesia of skin; Z79.3 Long term (current) use of hormonal contraceptives; Z79.899 Other long term (current) drug therapy; Z82.49 Family history of ischemic heart disease and other diseases of the circulatory system
CPT/HCPCS: 96360; 96361; 99285; 36415; 93005; 93306; 93351; 85379; 80053; 83735; 84484; 85025; 85610; 85730; 71046; G0378 ×2

== ENCOUNTER → 2024-04-10 | Outpatient (CLI) | payer BC ==
--- NOTE | 2024-04-10 16:57 | CT ---
EXAMINATION TYPE: CT chest w con CT DLP: 167.4 mGycm, Automated exposure control for dose reduction was used. DATE OF EXAM: 04/10/2024 4:27 PM COMPARISON: None CLINICAL INDICATION: Female, 34 years old with history of R07.9 CHEST PAIN; PHH, Chest pain TECHNIQUE: Multiple axial images were obtained through the chest. Sagittal and coronal reformats were created for review. MIP was performed on a separate workstation. Contrast used:100 mL of Isovue 370 with IV Contrast (None if empty) Oral contrast used: (None if empty) FINDINGS: LUNGS/ PLEURA: No focal consolidation, pneumothorax or pleural effusion. AIRWAY: Patent and unremarkable. HEART: Size within normal limits. MEDIASTINUM: No gross evidence of adenopathy. VASCULATURE: No aortic aneurysm. MUSCULOSKELETAL: No acute osseous abnormalities SOFT TISSUES/LYMPH NODES: Unremarkable. LOWER NECK: No significant findings. UPPER ABDOMEN: No significant findings. IMPRESSION: No evidence for acute process. [facility], , 04/10/2024 4:55 PM
== END | disposition home or self-care (01) ==
LOC: RADCTMAIN 15:48
PROVIDERS: ATTEND Family Medicine
DX: R07.9 Chest pain, unspecified (principal)
CPT/HCPCS: 71260

== ENCOUNTER → 2024-04-17 | Outpatient (CLI) | payer BC ==
--- NOTE | 2024-04-17 09:40 | FL ---
EXAMINATION TYPE: FL barium swallow DATE OF EXAM: 04/17/2024 8:46 AM COMPARISON: . Chest radiograph from same day. CLINICAL INDICATION:Female, 34 years old with history of R07.9 CHEST PAIN R06.02 SOB R13.10 DYSPHAGIA ; PH, TECHNIQUE: The procedure was explained and patient history elicited. All patient questions were ans wered prior to start of procedure. Multiple spot fluoroscopic images of the esophagus were obtained a fter the oral ingestion of effervescent crystals and liquid barium as the contrast agent. Fluoroscopic time:27 sec Fluoroscopic images:0 Radiographs taken: 160 DAP: not recorded [id number] FINDINGS: The esophagus demonstrates normal primary and secondary peristalsis. The esophageal mucosa is smooth without evidence of focal stricture, ulceration, or abnormal outpouching. No gastroesophageal reflu x disease was identified. IMPRESSION: Normal esophagram. [facility], , 04/17/2024 9:37 AM
== END | disposition home or self-care (01) ==
LOC: RADFLMAIN 08:08
PROVIDERS: ATTEND Family Medicine
CPT/HCPCS: 74220